=== PATIENT | male | born 1950 | race Caucasian/White ===

== ENCOUNTER → 2018-03-08 | Outpatient (CLI) | payer MEDICARE, BC | END | disposition home or self-care (01) | LOC: PCVCIMAG 15:26 | DX: I73.9 Peripheral vascular disease, unspecified (principal); L60.8 Other nail disorders; I73.00 Raynaud's syndrome without gangrene; I72.3 Aneurysm of iliac artery; I10 Essential (primary) hypertension; M06.9 Rheumatoid arthritis, unspecified; C64.2 Malignant neoplasm of left kidney, except renal pelvis; Z79.899 Other long term (current) drug therapy | CPT/HCPCS: 93925; G0463 ==

== ENCOUNTER → 2018-11-23 | Outpatient (CLI) | payer MEDICARE, BC ==
--- NOTE | 2018-11-23 17:01 | PCVCIMAG ---
EXAM: BILATERAL LOWER EXTREMITY ARTERIAL DUPLEX INDICATION: Peripheral Arterial Disease. Leg pain. Left great toe ulcer and discoloration. FINDINGS: Right Leg: Satisfactory arterial waveforms throughout the common/profunda/superficial femoral, popliteal, anterior tibial, peroneal, and posterior tibial arteries. No flow limiting stenosis seen. Left Leg: Satisfactory arterial waveforms throughout the common/profunda/superficial femoral, popliteal, anterior tibial, peroneal, and posterior tibial arteries. No flow limiting stenosis seen. IMPRESSION: No flow limiting stenosis in the right lower extremity. No flow limiting stenosis in the left lower extremity. LOC:[id number]
--- NOTE | 2018-11-23 17:08 | PCVCIMAG ---
EXAM: NONINVASIVE ARTERIAL EXAMINATION OF BOTH LOWER EXTREMITIES INCLUDING PRE AND POST COLDWATER IMMERSION THERMAL MEASUREMENTS AND DOPPLER WAVEFORMS INDICATION: Peripheral Arterial Disease. Leg pain. Discoloration left toe. FINDINGS: Good arterial waveforms throughout the digits of both feet at rest. Following [place] immersion there is moderate dampening of the digital waveforms in the right and left second through fifth digits. Both great toes waveforms are fairly well-maintained. [id number] delay in recovery of thermal measurements in the digits of both feet through 20 minutes are symmetric and may be related to some degree of temperature induced vasoconstriction. IMPRESSION: No evidence of fixed arterial obstruction. [id number] temperature sensitive vasoconstriction identified. These changes are symmetric in both feet involving primarily the second through fifth digits. LOC:[id number]
== END | disposition home or self-care (01) ==
LOC: PCVCIMAG 13:40
PROVIDERS: ATTEND Podiatrist Foot & Ankle Surgery
DX: I73.00 Raynaud's syndrome without gangrene (principal); I73.9 Peripheral vascular disease, unspecified; L81.9 Disorder of pigmentation, unspecified; L97.521 Non-pressure chronic ulcer of other part of left foot limited to breakdown of skin
CPT/HCPCS: 93924; 93925

== ENCOUNTER → 2018-11-30 | Outpatient (CLI) | payer MEDICARE, BC ==
--- NOTE | 2018-11-30 18:16 | PCVCIMAG ---
EXAM: BILATERAL SUPERFICIAL VENOUS DUPLEX INDICATION: Leg pain and swelling. FINDINGS: Right leg: No thrombus in the common femoral, main femoral, or popliteal veins. These veins are compressible. Right Great Saphenous Vein: At the saphenofemoral junction the diameter is 9.6 mm, in the mid thigh it is 4.3 mm, and in the calf it is 4.1 mm. There is not significant venous insufficiency/reflux throughout. Venous insufficiency/reflux duration is 0.2 seconds. Right Small Saphenous Vein: At the saphenopopliteal junction the diameter is 3.8 mm, and in the calf it is 3.4 mm. There is not significant venous insufficiency/reflux throughout. Venous insufficiency/reflux duration is 0 seconds. There is not a cranial extension present. Left leg: No thrombus in the common femoral, main femoral, or popliteal veins. These veins are compressible. Left Great Saphenous Vein: At the saphenofemoral junction the diameter is 10.0 mm, in the mid thigh it is 3.4 mm, and in the calf it is 2.9 mm. There is not significant venous insufficiency/reflux throughout. Venous insufficiency/reflux duration is 0 seconds. Left Small Saphenous Vein: At the saphenopopliteal junction the diameter is 4.0 mm, and in the calf it is 3.5 mm. There is not significant venous insufficiency/reflux throughout. Venous insufficiency/reflux duration is 0 seconds. There is not a cranial extension present. IMPRESSION: Right Great Saphenous Vein: No significant venous insufficiency/reflux is present as noted above. Right Small Saphenous Vein: No significant venous insufficiency/reflux is present as noted above. Left Great Saphenous Vein: No significant venous insufficiency/reflux is present as noted above. Left Small Saphenous Vein: No significant venous insufficiency/reflux is present as noted above. LOC:[id number]
== END | disposition home or self-care (01) ==
LOC: PCVCIMAG 12:41
PROVIDERS: ATTEND Podiatrist Foot & Ankle Surgery
DX: M79.89 Other specified soft tissue disorders (principal); M79.604 Pain in right leg; M79.605 Pain in left leg
CPT/HCPCS: 93970

== ENCOUNTER → 2018-12-03 | Outpatient (CLI) | payer MEDICARE, BC | END | disposition home or self-care (01) | LOC: PCVCCLINIC 09:59 | PROVIDERS: ATTEND Nuclear Medicine Nuclear Cardiology | DX: I73.00 Raynaud's syndrome without gangrene (principal); I72.3 Aneurysm of iliac artery; I10 Essential (primary) hypertension; C64.2 Malignant neoplasm of left kidney, except renal pelvis; E78.2 Mixed hyperlipidemia; M06.9 Rheumatoid arthritis, unspecified; Z79.899 Other long term (current) drug therapy | CPT/HCPCS: G0463 ==